=== PATIENT | female | born 1960 | race African-American/Black ===

== ENCOUNTER 2019-02-01 12:36 | Emergency (ER) | payer OTHER ==
[2019-02-01 13:08] VITALS: BP 157/97; PULSE 85; TEMP 98.5; BMI 35.9
--- NOTE | 2019-02-01 14:14 | PDOC ---
History of Present Illness - General Chief Complaint: Chest Pain Stated Complaint: WITHDRAWAL/HYPERTENSION History Source: Patient Exam Limitations: No Limitations - History of Present Illness Initial Comments: 58 yo F with a hx of percocet abuse (states she takes 10-12x 10-325 mg pills daily for "too many years"; last use 2 days ago), HTN, and ETOH abuse presents to the emergency department with chest pain for 2 days and feelings of "withdrawal". Per the patient, the pain was gradual in onset, located in the center sternum, worsens with position changing (laying on her side), worsens with exertion, and described as tightness. Concurrently, she has had feelings of nervousness secondary to not having her percocet that she ran out of. Denies the following: fever, chills, nausea, vomiting, SOB, lightheadedness, ears/nose/throat pain, abdominal pain, dysuria, hematuria, diarrhea, diaphoresis , tremors, anxiety, and leg pain/swelling. Allergies: NKDA Past History - Past Medical History Allergies/Adverse Reactions: Allergies Allergy/AdvReac Type Severity Reaction Status Date / Time No Known Allergies Allergy Verified 02/01/19 13:03 Home Medications: Ambulatory Orders Gabapentin [Neurontin] 800 mg PO TID 10/14/12 Tramadol HCl 100 mg PO BID 05/22/13 Cyclobenzaprine HCl [Flexeril -] 10 mg PO HS #3 tablet 06/10/13 Nabumetone 500 mg PO DAILY #0 06/10/13 Amlodipine Besylate 5 mg PO DAILY 02/01/19 Losartan/Hydrochlorothiazide [Losartan-Hctz 100-25 mg Tab] 100 mg PO DAILY 02/01 Oxycodon-Acetaminophen 7.5-325 10 mg PO TID 02/01/19 Anemia: Yes Asthma: No Cancer: No Cardiac Disorders: Yes ("leaky valve"-last ECHO one yr ago) CVA: No COPD: No CHF: No Dementia: No Diabetes: No GI Disorders: No Disorders: No HTN: Yes Hypercholesterolemia: No Kidney Stones: No Liver Disease: No Seizures: No Thyroid Disease: No - Surgical History Abdominal Surgery: No Appendectomy: Yes (Colonoscopy) Cholecystectomy: No Lung Surgery: No Neurologic Surgery: No Orthopedic Surgery: Yes - Immunization History Immunization Up to Date: Yes - Psycho Social/Smoking Cessation Hx Smoking History: Never smoked Have you smoked in the past 12 months: Yes Number of Cigarettes Smoked Daily: 2 'Breaking Loose' booklet given: 10/14/12 Hx Alcohol Use: No Drug/Substance Use Hx: No Substance Use Type: Alcohol, Cocaine, Heroin, Marijuana Hx Substance Use Treatment: Yes (2 yrs ago) Review of Systems - Review of Systems Able to Perform ROS?: Yes Is the patient limited Togolese proficient: No Constitutional: No: Chills, Diaphoresis, Fever, Weakness HEENTM: No: Eye Pain, Ear Pain, Nose Pain, Throat Pain, Mouth Pain Respiratory: No: Cough, Shortness of Breath, Hemoptysis Cardiac (ROS): Yes: Chest Pain, Chest Tightness. No: Lightheadedness, Palpitations, Syncope ABD/GI: No: Constipated, Diarrhea, Nausea, Rectal Bleeding, Vomiting, Tarry Stools : No: Burning, Dysuria, Hematuria Musculoskeletal: Yes: Back Pain (chronic\\). No: Joint Pain, Neck Pain Integumentary: No: Bruising, Erythema, Rash Neurological: No: Headache, Tingling, Ataxia Psychiatric: No: Change in Appetite Endocrine: No: Unexplained Weight Gain Hematologic/Lymphatic: No: Anemia *Physical Exam - Vital Signs Last Vital Signs Temp Pulse Resp BP Pulse Ox 98.5 F 85 17 157/97 100 02/01/19 13:03 02/01/19 13:03 02/01/19 13:03 02/01/19 13:03 02/01/19 13:03 - Physical Exam General Appearance: Yes: Nourished, Appropriately Dressed. No: Apparent Distress, Intoxicated HEENT: positive: EOMI, CHAPIN, Normal Voice, Symmetrical, Pharynx Normal, Hearing Grossly Normal. negative: Pale Conjunctivae, Scleral Icterus (R), Scleral Icterus (L), Muffled/Hoarse voice, Pharyngeal Erythema, Tonsillar Exudate, Tonsillar Erythema, Nasal Congestion, Rhinorrhea, Sinus Tenderness, Excessive drooling Neck: positive: Trachea midline, Supple. negative: Tender, Lymphadenopathy (R) , Lymphadenopathy (L) Respiratory/Chest: positive: Chest Tender (center chest), Lungs Clear, Normal Breath Sounds. negative: Respiratory Distress, Accessory Muscle Use, Stridor, Wheezing, Hyperresonant Cardiovascular: positive: Regular Rhythm, Regular Rate, S1, S2. negative: Systolic Murmur Gastrointestinal/Abdominal: positive: Normal Bowel Sounds, Flat, Soft. negative : Tender, Distended, Guarding, Rebound Lymphatic: negative: Adenopathy Musculoskeletal: positive: Normal Inspection. negative: CVA Tenderness, Vertebral Tenderness Extremity: positive: Normal Capillary Refill, Normal Inspection, Normal Range of Motion. 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 NML intact, Fully Oriented, Alert, Normal Mood/ Affect Heart Score/ECG Review - History History: Slightly suspicious - Electrocardiogram EKG: Normal - Age Age: 45-65 - Risk Factors Risk Factors Heart Score: Yes Hx Hypertension, Yes Smoking History, Yes Hx Obesity Based on the list above the patient has:: >/=3 risk factors or Hx atherosclerotic disease - Troponin Troponin: </= normal limit - Score Heart Score - Total: 3 ED Treatment Course - LABORATORY CBC & Chemistry Diagram: 02/01/19 14:30 02/01/19 14:30 Medical Decision Making - Medical Decision Making 58 yo F with a hx of percocet abuse (states she takes 10-12x 10-325 mg pills daily for "too many years"; last use 2 days ago), HTN, and ETOH abuse presents to the emergency department with chest pain for 2 days and feelings of "withdrawal". Initial vitals; Initial Vital Signs Temp Pulse Resp BP Pulse Ox 98.5 F 85 17 157/97 100 02/01/19 13:03 02/01/19 13:03 02/01/19 13:03 02/01/19 13:03 02/01/19 13:03 Work up: ddx: acs work up The patient [facility] for [facility] BP which on our re-evaluation was 138/88. The patient will have the following ordered: cbc, cmp, trops, ekg, cxr. Will not order d-dimer as this patient does not have PE risk factors. I will also evaluated her acetaminophen levels as she is ingesting approximately 4 grams daily. Will assess LFTs as well. Laboratory Tests 02/01/19 02/01/19 02/01/19 14:30 14:30 14:30 WBC 6.6 RBC 4.71 Hgb 14.9 Hct 44.0 D MCV 93.4 MCH 31.6 D MCHC 33.8 RDW 12.5 D Plt Count 364 MPV 6.9 L Absolute Neuts (auto) 3.8 Neutrophils % 57.6 Lymphocytes % 32.3 Monocytes % 8.1 Eosinophils % 0.7 Basophils % 1.3 Nucleated RBC % 0 Sodium Potassium Chloride Carbon Dioxide Anion Gap BUN Creatinine Est GFR (CKD-EPI)AfAm Est GFR (CKD-EPI)NonAf Random Glucose Calcium Total Bilirubin AST ALT Alkaline Phosphatase Creatine Kinase 95 Troponin I < 0.02 Total Protein Albumin Lipase Urine Color Urine Appearance Urine pH Ur Specific [place] Urine Protein Urine Glucose (UA) Urine Ketones Urine Blood Urine Nitrite Urine Bilirubin Urine Urobilinogen Ur Leukocyte Esterase Acetaminophen <2.0 02/01/19 02/01/19 02/01/19 14:30 14:30 17:25 WBC RBC Hgb Hct MCV MCH MCHC RDW Plt Count MPV Absolute Neuts (auto) Neutrophils % Lymphocytes % Monocytes % Eosinophils % Basophils % Nucleated RBC % Sodium 138 Potassium 4.3 Chloride 107 Carbon Dioxide 26 Anion Gap 6 L BUN 10.2 Creatinine 0.8 Est GFR (CKD-EPI)AfAm 94.85 Est GFR (CKD-EPI)NonAf 81.84 Random Glucose 100 Calcium 9.4 Total Bilirubin 0.3 AST 21 ALT 23 Alkaline Phosphatase 110 Creatine Kinase Troponin I < 0.02 Total Protein 7.9 Albumin 3.6 Lipase 89 Urine Color Yellow Urine Appearance Cloudy Urine pH 7.0 D Ur Specific [place] 1.012 Urine Protein Negative Urine Glucose (UA) Negative Urine Ketones Negative Urine Blood Negative Urine Nitrite Negative Urine Bilirubin Negative Urine Urobilinogen 1.0 Ur Leukocyte Esterase Negative Acetaminophen trop negative x2. No elevation in LFTs and acetaminophen The patient's iSTOP was evaluated by Dr. Friedman which indicated that the patient was given a 30 day supply of norco 9 days ago and is allegedly out of it. We will provide a 1x dose here CXR is negative for acute process EKG: NSR with q wave in V2. No TWI. No ST elevations or depressions Patient has been painfree throughout her ED stay. will discharge Discharge - Discharge Information Problems reviewed: Yes Clinical Impression/Diagnosis: Chest pain Disposition: HOME - Admission No - Follow up/Referral Referrals: [facility] [place] [facility] [Provider Group] - Patient Discharge Instructions Patient Printed Discharge Instructions: DI for Atypical Chest Pain Additional Instructions: You were seen in the emergency department for your chest pain. labs were negative. please follow up with your pain doctor for follow up care and management within 1 week after discharge. Please return to the emergency department if you have worsening pain or new concerning symptoms. Thank you. - Post Discharge Activity
[2019-02-01] MEDS ORDERED: ACETAMINOPHEN 1000 MG/100 ML VIAL (NON FORMULARY) IVPB ONE (14:21)
[2019-02-01 14:41] LABS: URINE APPEARANCE CLOUDY; URINE BILIRUBIN NEGATIVE (NEGATIVE); URINE COLOR YELLOW; URINE GLUCOSE (UA) NEGATIVE (NEGATIVE); URINE KETONE NEGATIVE (NEGATIVE); URINE LEUK ESTERASE NEGATIVE (NEGATIVE); URINE NITRITE NEGATIVE (NEGATIVE); URINE PROTEIN NEGATIVE (NEGATIVE)
[2019-02-01] MEDS ORDERED: LIDOCAINE 5% TOPICAL PATCH TP ONE (14:44)
[2019-02-01] MEDS ORDERED: ACETAMINOPHEN INJECTION 100 ML IVPB ONE (14:44)
[2019-02-01 14:53] LABS: BASO % 1.3 % (0-2.0); EOS % 0.7 % (0-4.5); HEMOGLOBIN 14.9 GM/dL (10.7-15.3); LYMPH % 32.3 % (8-40); MCH 31.6 pg (25.7-33.7); MCHC 33.8 g/dl (32.0-36.0); MEAN CELL VOLUME 93.4 fl (80-96); MEAN PLT VOLUME 6.9 fl (7.5-11.1); MONO % 8.1 % (3.8-10.2); NEUT % 57.6 % (42.8-82.8); PLATELET COUNT 364 K/MM3 (134-434); RBC 4.71 M/mm3 (3.60-5.2); RDW 12.5 % (11.6-15.6); WHITE BLOOD COUNT 6.6 K/mm3 (4.0-10.0)
[2019-02-01] MEDS ORDERED: BACLOFEN 10 MG TABLET (FP) PO ONE ×2 (15:04→15:05)
[2019-02-01] MEDS ORDERED: LIDOCAINE 5% TOPICAL PATCH ONE (15:09)
[2019-02-01 15:33] LABS: ALBUMIN 3.6 g/dl (3.4-5.0); BILIRUBIN,TOTAL 0.3 mg/dL (0.2-1); BLOOD UREA NITROGEN 10.2 mg/dL (7-18); CALCIUM 9.4 mg/dL (8.5-10.1); CREATININE 0.8 mg/dL (0.55-1.3); POTASSIUM 4.3 mmol/L (3.5-5.1); TOT PROT 7.9 g/dl (6.4-8.2)
[2019-02-01] MEDS ORDERED: BACLOFEN 10 MG TABLET (FP) ONE (17:34)
--- NOTE | 2019-02-01 18:01 | PDOC ---
Documentation entered by Demetrius Fontaine SCRIBE, acting as scribe for Ning Friedman MD. Ning Friedman MD: This documentation has been prepared by the Minal argueta Nirvannie, SCRIBE, under my direction and personally reviewed by me in its entirety. I confirm that the documentation accurately reflects all work, treatment, procedures, and medical decision making performed by me. Attending Attestation - Resident Resident Name: Ben Lawler - ED Attending Attestation I have performed the following: I have examined & evaluated the patient, The case was reviewed & discussed with the resident, I agree w/resident's findings & plan, Exceptions are as noted - HPI HPI: 02/01/19 15:07 The patient is a 58 year old female, with a significant past medical history of HTN and polysubstance abuse (EtOH and Percocet 10-12x 10-325 mg pills daily last use 2 days ago) presents to the emergency department with 2 days of gradual onset midsternal chest tightness worsened while lying on the side, pushing on her sternum and with exertion. Patient notes associated increased nervousness secondary to medication withdrawal. Denies associated diaphoresis, sob, dizziness, focal weakness/numbness, abd pain, trauma, LE edema. Patient was being evaluated at [facility] when she was found to be hypertensive to 190/110mmHg, prompting them to send her to the ED for evaluation. She denies recent fevers, chills, headache. She denies recent nausea, vomit, diarrhea or constipation. She denies recent dysuria, frequency, urgency or hematuria. Allergies: NKDA - Physicial Exam PE: 02/01/19 17:56 GENERAL: Awake, alert, and fully oriented, in no acute distress HEAD: No signs of trauma EYES: PERRLA, EOMI, sclera anicteric, conjunctiva clear ENT: Auricles normal inspection, hearing grossly normal, nares patent, oropharynx clear without exudates. Moist mucosa NECK: Normal ROM, supple, no lymphadenopathy, JVD, or masses LUNGS: Breath sounds equal, clear to auscultation bilaterally. No wheezes, and no crackles HEART: Regular rate and rhythm, normal S1 and S2, no murmurs, rubs or gallops ABDOMEN: Soft, nontender, normoactive bowel sounds. No guarding, no rebound. No masses EXTREMITIES: Normal range of motion, no edema. No clubbing or cyanosis. No cords, erythema, or tenderness NEUROLOGICAL: Normal speech, cranial nerves intact, negative pronator drift, 5/ 5 strength in all 4 extremities, normal sensation to light touch in all 4 extremities, normal cerebellar exam, normal gait, normal reflexes and tone SKIN: Warm, Dry, normal turgor, no rashes or lesions noted. - Medical Decision Making 02/01/19 17:57 58-year-old female presents the emergency department with elevated blood pressure at [facility] as well as 2 days of chest pain with no associated symptoms. At this time the chest pain has completely resolved. Her blood pressure on my check is 138/88. The patient's labs, chest x-ray, and EKG are all within normal limits. Her heart score is 3. We will repeat a second troponin, and if negative will discharge the patient. She has no PE risk factors , is not SOB, tachycardic, hypoxic and has no LE edema or cath pain. She is well-appearing otherwise. 02/01/19 18:20 Trop x2 negative Continues to be chest pain free C/o chronic back pain, requesting refill of percocet Istop reviewed, pt had a 30 day supply filled 9 days ago of percocet 10-325 Discussed this with pt, we will not be refilling her percocet as she is prescribed it by another provider We will give her a dose of percocet here She is otherwise well appearing and clinically stable for DC I discussed the physical exam findings, ancillary test results and final diagnoses with the patient. I answered all of the patient's questions. The patient was satisfied with the care received and felt comfortable with the discharge plan and treatment plan. The patient will call their primary care physician within 24 hours to arrange follow-up and will return to the Emergency Department with any new, persistent or worsening symptoms. Heart Score/ECG Review #1 02/01/19 18:00 Twelve-lead EKG was performed and reviewed by me. Normal sinus rhythm, rate 84. Normal axis. No ST elevation or T wave inversions.
[2019-02-01] MEDS ORDERED: LIDOCAINE PATCH REMOVAL MC SCH (22:00)
--- NOTE | 2019-02-02 14:49 | EKG ---
Test Reason : Blood Pressure : / mmHG Vent. Rate : 084 BPM Atrial Rate : 084 BPM P-R Int : 182 ms QRS Dur : 080 ms QT Int : 380 ms P-R-T Axes : 049 003 033 degrees QTc Int : 449 ms NORMAL SINUS RHYTHM ANTERIOR INFARCT , AGE UNDETERMINED ABNORMAL ECG NO PREVIOUS ECGS AVAILABLE Confirmed by WAYNE HERMOSILLO MD ([id number]) on 02/02/2019 2:48:50 PM Referred By: Confirmed By:WAYNE HERMOSILLO MD
== END 2019-02-01 22:55 | disposition home or self-care (01) ==
LOC: JER 12:36
DX: R07.9 Chest pain, unspecified (principal); I10 Essential (primary) hypertension; F10.10 Alcohol abuse, uncomplicated
CPT/HCPCS: 36415; 71045-TC-FY; 80053; 80307; 81003; 82550; 83690; 84484; 85025; 87086; 93005; 93010; 99282-25; J0475

== ENCOUNTER 2024-07-22 14:31 | Emergency (ER) | payer OTHER ==
[2024-07-22 14:47] VITALS: BP 142/90; PULSE 80; RESP 19; TEMP 97.8; BMI 25.8
[2024-07-22] MEDS ORDERED: BUPRENORPHINE/NALOXONE 2 MG/0.5 MG FILM PACKET ONE (16:06)
[2024-07-22] MEDS: BUPRENORPHINE/NALOXONE 4 MG/1 MG FILM PACKET SL ONE (16:10)
== END 2024-07-22 17:42 | disposition home or self-care (01) ==
LOC: JER 14:31
DX: R46.4 Slowness and poor responsiveness (principal); T40.1X1A Poisoning by heroin, accidental (unintentional), initial encounter; R94.31 Abnormal electrocardiogram [ECG] [EKG]
CPT/HCPCS: 93005; 93010; 99283-25